=== PATIENT | female | born 1980 | race Caucasian/White ===

== ENCOUNTER 2017-06-23 11:40 | Emergency (ER) | payer OTHER ==
[~2017-06-23] VITALS: Ht 170.2 cm; Wt 63.5 kg
--- NOTE | ~2017-06-23 | EKG ---
[address] [place] [address] ELECTROCARDIOGRAM REPORT Name: LEONEL SOMERS Room #: DEP DANICA Ugarte#: [id number] Admission: 06/23/17 Attend Phys: Discharge: 06/23/17 Date of : 82 Report #: [id number] THIS REPORT FOR: //name// [facility] ED Test Date: 2017-06-23 Test Time: 12:10:42 Pat Name: LEONEL SOMERS Department: Room: Gender: F [employer] Machine: JEANIE : 1980 Requested By: Surinder Griffin Order Number: [id number] MD: Bubba Isabel Measurements Intervals [place] Rate: 106 P: 76 [place]: 135 QRS: 61 QRSD: 84 T: 10 QT: 325 QTc: 432 Interpretive Statements Sinus tachycardia Otherwise no significant abnormality No previous ECG available for comparison Electronically Signed On 06-23-2017 16:24:39 [employer]ARING [employer] REPAIRER by Bubba Isabel [email or web address] <ELECTRONICALLY SIGNED> By: Bubba Isabel MD, [facility] 06/23/17 1624 1210 1210 uBbba Isabel MD, FACC /EPI
[~2017-06-23 11:40] MED LIST: IBUPROFEN 600600 M1 PO; NORCO 5-325 TA1 EACH PO; ONDANSETRON HCL4 M2 PO; PRENATAL PO
[2017-06-23] MEDS ORDERED: TOPROL XL25 MG PO (11:43)
[2017-06-23] MEDS ORDERED: LAMICTAL100 MG PO (11:43)
[2017-06-23] MEDS ORDERED: XANAX 0.5 MG0.5 MG PO (11:44)
[2017-06-23] MEDS ORDERED: ADDERALL 5 MG TA5 M1 PO (11:44)
[2017-06-23 12:10] LABS: HEMATOCRIT 45.9 % (37.0-47.0); HEMOGLOBIN 15.6 gm/dL (12.0-15.0); RBC 5.04 mil/uL (4.20-5.00); RDW 12.7 % (10.5-14.5)
[2017-06-23 12:17] LABS: ANION GAP 12 mmol/L (7-16); BUN 13 mg/dL (7-18); CALCIUM 9.5 mg/dL (8.5-10.1); CHLORIDE 103 mmol/L (98-107); CO2 25 mmol/L (21-32); CREATININE 0.8 mg/dL (0.6-1.0); GLUCOSE 114 mg/dL (74-106); POTASSIUM 3.8 mmol/L (3.5-5.1); SODIUM 140 mmol/L (136-145)
[2017-06-23 12:26] LABS: TROPONIN-I < 0.04 ng/mL (<0.06)
== END 2017-06-23 15:03 | disposition home or self-care (01) ==
LOC: ER 11:40
PROVIDERS: Emergency Medicine
DX: R06.00 Dyspnea, unspecified (principal); F41.9 Anxiety disorder, unspecified; I10 Essential (primary) hypertension